=== PATIENT | female | born 1970 | race Caucasian/White ===

== ENCOUNTER 2021-01-15 14:43 | Emergency (ER) | payer SELFPAY ==
[~2021-01-15] VITALS: Ht 162.6 cm; Wt 107.0 kg
--- NOTE | 2021-01-15 17:11 | PHYS DOC ---
Past Medical History Past Surgical History: No Surgical History Smoking Status: Current Every Day Smoker Alcohol Use: Occasionally General Adult EDM: Chief Complaint: MULTIPLE COMPLAINTS HPI: HPI: Patient is a 50 year old female who presents with multiple complaints. Her complaints include oral/dental pain, dried blood on teeth upon waking, sinus pain, facial swelling, left pinky toe numbness, periscapular back numbness, nausea. Patient reports she has had several sinus infections over the past year. She has not been evaluated by ENT. Patient states she believes she has a canker sore behind her front teeth on the upper jaw. She has used topical Orajel, prescribed mouth rinses, and hydrogen peroxide in effort to relieve her oral symptoms. Patient reports she was given a prescription for Flonase and instructed to use Mucinex by her primary care provider, which did not improve her symptoms. She has also taken Sudafed intermittently and for periods of 2 days at a time to treat her nasal congestion without significant symptom relief. She reports that Mucinex does not help improve her symptoms. Patient believes the lower half of her facial swelling comes from her dental symptoms, and that the upper half of her facial swelling is a result of her sinus congestion and pressure. The numbness that she feels in her back and pinky toe began after she "threw her back out" while sweeping at work. She was not evaluated or treated at that time. Patient expressed her concerns to her primary care provider, who advised that she present to the emergency department for a facial CT scan among other work- up. Patient is in the process of smoking cessation and has decreased from greater than 1 pack of cigarettes per day down to 3-5 cigarettes/day and takes Chantix. She has had a chronic cough since age 16 and has had no changes in cough frequency or sputum production. Review of Systems: Review of Systems: Constitutional: Denies fever or chills. Eyes: Denies change in visual acuity, periorbital pain, discharge. HENT: See HPI Respiratory: See HPI Cardiovascular: Denies chest pain or edema. GI: See HPI : Denies dysuria or hematuria. Musculoskeletal: See HPI Integument: Denies rash or other skin lesions. Neurologic: See HPI Heart Score: C/O Chest Pain: No Allergies: Allergies: Allergies Coded Allergies Type Severity Reaction Last Updated Verified acetaminophen Allergy Unknown 01/15/21 Yes oxycodone Allergy Unknown 01/15/21 Yes Physical Exam: PE: Constitutional: Well developed, well nourished, no acute distress, non-toxic appearance. HENT: Normocephalic, atraumatic, bilateral external ears normal, oropharynx moist, no oral exudates, nose without obvious deformity or discharge. Eyes: PERRLA, EOMI, conjunctiva normal, no discharge. Neck: Normal range of motion, no tenderness, supple, no stridor, no JVD. Cardiovascular: Heart rate regular rhythm, no murmur. Lungs & Thorax: Bilateral breath sounds diminished with audible wheezing, consistent with patient's baseline. Abdomen: Bowel sounds normal, soft, no tenderness, no masses, no pulsatile masses. Skin: Warm, dry, no erythema, no rash. Back: No step-offs, no midline tenderness, mild spasm noted on the left side parascapular paraspinal musculature. Extremities: No tenderness, no cyanosis, no clubbing, ROM intact, no edema. Neurologic: Alert and oriented x4, motor function grossly intact, sensory function grossly intact, no focal deficits noted. Current Patient Data: Labs: Laboratory Tests Test 01/15/21 15:52 POC Urine HCG, Qualitative Hcg negative (Negative) Vital Signs: Vital Signs Date Time Temp Pulse Resp B/P (MAP) Pulse Ox O2 Delivery O2 Flow Rate FiO2 01/15/21 15:05 98.3 72 18 176/73 (107) 98 Room Air 98.3 Radiology/Procedures: Radiology/Procedures: PROCEDURE: CT MAXILLOFACIAL WO CONTRAST EXAM: CT maxillofacial bones without contrast INDICATION: Facial pain, facial swelling. Blood in mouth COMPARISON: None TECHNIQUE: Axial CT imaging through the maxillofacial bones without intravenous contrast. Sagittal and coronal reformats were obtained. One or more of the following individualized dose reduction techniques were utilized for this examination: 1. Automated exposure control 2. Adjustment of the mA and/or kV according to patient size 3. Use of iterative reconstruction technique. FINDINGS: There is no acute fracture of the facial bones. There is mild circumferential mucosal thickening in the maxillary sinuses with mild layering complex fluid and frothy secretions in the sinuses. Small amount of fluid or mucosal thickening in the sphenoid sinuses. Scattered mucosal thickening in the ethmoid air cells and frontal sinuses. Mastoid air cells are clear. Globes and orbits are intact. Expanded partially empty sella noted. IMPRESSION: 1. No facial fracture. 2. Paranasal sinus disease, greatest in the maxillary sinuses where there is complex fluid and bubbly secretions. Correlate for acute sinusitis. Electronically signed by: Luba Head MD (01/15/2021 5:15 PM) [id number] Course & Med Decision Making: Course & Med Decision Making Pertinent Labs and Imaging studies reviewed. (See chart for details) Patient's complaints are largely variable and likely unrelated. Patient is pleasant, however difficult to assess due to the subjective nature of her complaints. Per patient, her primary care provider would like a CT of her sinuses. While this is not an imaging study that I would be likely to order myself, scan will be ordered for the patient under advisement of her primary care provider. Lab work will also be drawn. Work-up is reassuring. CT did show evidence of sinusitis. Otherwise, patient will be treated for muscle spasm. Referrals will be provided for ENT and pain management. Patient understands and is agreeable to discharge plan. Dragon Disclaimer: Dragon Disclaimer: This electronic medical record was generated, in whole or in part, using a voice recognition dictation system. Departure Departure Impression: Primary Impression: Congestion of paranasal sinus Additional Impressions: Canker sores oral Muscle spasm Disposition: HOME / SELF CARE / HOMELESS Condition: STABLE Referrals: UNKNOWN PCP NAME (PCP) ROSIE DUNN MD, BRIAN N MD Patient Instructions: Canker Sores, Brief, Muscle Strain, Cscl-rl-Khsj, Sinusitis, Ebvr-cy-Aqmn Scripts Orphenadrine Citrate (ORPHENADRINE CITRATE) 100 Mg Tablet.er 1 TAB PO BID, #20 TAB 1 Refill Prov: CHASTITY HOLDEN 01/15/21 Amoxicillin/Potassium Clav (AUGMENTIN 875-125 TABLET) 1 Each Tablet 1 TAB PO BID for 14 Days, #28 TAB 0 Refills Prov: CHASTITY HOLDEN 01/15/21 CHASTITY HOLDEN Jan 15, 2021 17:10
[2021-01-15 17:13] LABS: BASO % 1 % (0-3); EOS # 0.2 x10^3/uL (0.0-0.7); EOS % 3 % (0-3); HEMATOCRIT 41.2 % (36.0-47.0); HEMOGLOBIN 13.9 g/dL (12.0-15.5); LYMPH # 2.1 x10^3/uL (1.0-4.8); LYMPH % 30 % (24-48); MEAN CORPUSCULAR HEMOGLOBIN 28 pg (25-35); MEAN CORPUSCULAR HGB CONC 34 g/dL (31-37); MEAN CORPUSCULAR VOLUME 82 fL (79-100); MONO # 0.7 x10^3/uL (0.0-1.1); MONO % 10 % (0-9); NEUT # 3.9 x10^3/uL (1.8-7.7); NEUT % 56 % (31-73); PLATELET COUNT 206 x10^3/uL (140-400); RED BLOOD COUNT 5.02 x10^6/uL (3.50-5.40); RED CELL DISTRIBUTION WIDTH 15.4 % (11.5-14.5); WHITE BLOOD COUNT 6.8 x10^3/uL (4.0-11.0)
--- NOTE | 2021-01-15 17:17 | RAD ---
EXAM: CT maxillofacial bones without contrast INDICATION: Facial pain, facial swelling. Blood in mouth COMPARISON: None TECHNIQUE: Axial CT imaging through the maxillofacial bones without intravenous contrast. Sagittal an d coronal reformats were obtained. One or more of the following individualized dose reduction techniques were utilized for this examinat ion: 1. Automated exposure control 2. Adjustment of the mA and/or kV according to patient size 3. Use of iterative reconstruction technique. FINDINGS: There is no acute fracture of the facial bones. There is mild circumferential mucosal thickening in t he maxillary sinuses with mild layering complex fluid and frothy secretions in the sinuses. Small niki unt of fluid or mucosal thickening in the sphenoid sinuses. Scattered mucosal thickening in the ethmo id air cells and frontal sinuses. Mastoid air cells are clear. Globes and orbits are intact. Expanded partially empty sella noted. IMPRESSION: 1. No facial fracture. 2. Paranasal sinus disease, greatest in the maxillary sinuses where there is complex fluid and bubbly secretions. Correlate for acute sinusitis. Electronically signed by: Luba Head MD (01/15/2021 5:15 PM) [id number]
[2021-01-15 17:23] LABS: CALCIUM 8.3 mg/dL (8.5-10.1); CREATININE 0.7 mg/dL (0.6-1.0); GFR 89.3; POTASSIUM 4.1 mmol/L (3.5-5.1)
[2021-01-15 17:29] LABS: ALBUMIN 3.1 g/dL (3.4-5.0); ALBUMIN/GLOBULIN RATIO 0.8 (1.0-1.7); TOTAL BILIRUBIN 0.3 mg/dL (0.2-1.0); TOTAL PROTEIN 7.2 g/dL (6.4-8.2)
[2021-01-15] MEDS ORDERED: ORPH100T PO (18:21)
[2021-01-15] MEDS ORDERED: AMOX1TAB61 PO (18:21)
[2021-01-15 18:55] VITALS: BP 148/68
== END 2021-01-15 18:56 | disposition home or self-care (01) ==
LOC: ER 14:43
DX: K12.0 Recurrent oral aphthae (principal); R09.81 Nasal congestion; M62.838 Other muscle spasm; Z88.5 Allergy status to narcotic agent; Z88.6 Allergy status to analgesic agent
CPT/HCPCS: 36415; 70486; 80053; 81025; 83690; 85025; 99284-25

== ENCOUNTER → 2021-03-23 | Outpatient (CLI) | payer OTHER ==
[~2021-03-23] MED LIST: AMOX1TAB61 PO; ORPH100T PO
--- NOTE | 2021-03-24 11:20 | CARD ---
MR#: [id number] Date of Study: 03/23/2021 Ordering Physician: ARABELLA IVAN, Referring Physician: ARABELLA IVAN, Tech: Katya Adame, [facility] APPROVED REPORT EXAM: Two-dimensional and M-mode echocardiogram with Doppler and color Doppler. Other Information Quality : AverageHR: 58bpm INDICATION Murmur RISK FACTORS Hypertension Smoking 2D DIMENSIONS Left Atrium(2D)3.9 (1.6-4.0cm)IVSd1.1 (0.7-1.1cm) Aortic Root(2D)4.1 (2.0-3.7cm)LVDd5.1 (3.9-5.9cm) LVOT Diameter2.0 (1.8-2.4cm)PWd1.0 (0.7-1.1cm) LVDs2.4 (2.5-4.0cm)FS (%) 52.6 % SV104.3 mlLVEF(%)83.4 (>50%) Aortic Valve AoV Peak Yohan.133.7cm/sAoV VTI29.9cm AO Peak GR.7.1mmHgLVOT Peak Yohan.121.8cm/s LVOT VTI 27.79cmAO Mean GR.4mmHg CURTIS (VMAX)2.89bb9JCE (VTI)3.05cm2 Mitral Valve MV E Dgiegknj411.2cm/sMV DECEL [id number] MV A Vvydxlta43.2cm/sMV E Mean Gr.2mmHg MV WGS34lpH/A Ratio1.3 MVA (PHT)3.55cm2 TDI E/Lateral E'8.9E/Medial E'14.0 Pulmonary Valve PV Peak Efpzocth544.4cm/sPV Peak Grad.4mmHg Tricuspid Valve TR P. Gjoitits196tg/sRAP FFMQLTWL6ncXx TR Peak Gr.36yoPcYDLF45ppKh Pulmonary Vein S1 Tbuwzqtf98.8cm/sD2 Ufkjpjrd20.7cm/s PVa pvhytsyr757dxhb LEFT VENTRICLE The left ventricle is normal size. There is normal left ventricular wall thickness. The left ventricu lar systolic function is normal and the ejection fraction is within normal range. The Ejection Fracti on is 50-55%. There is normal LV segmental wall motion. The left ventricular diastolic function and f illing is normal for age. RIGHT VENTRICLE The right ventricle is normal size. There is normal right ventricular wall thickness. The right ventr icular systolic function is normal. ATRIA The left atrium size is normal. The right atrium size is normal. The interatrial septum is intact wit h no evidence for an atrial septal defect or patent foramen ovale as noted on 2-D or Doppler imaging. AORTIC VALVE The aortic valve is normal in structure and function. Doppler and Color Flow revealed no significant aortic regurgitation. There is no significant aortic valvular stenosis. Calculated aortic valve area is 2.85 cm2 with maximum pressure gradient of 9 mmHg and mean pressure gradient of 5 mmHg. MITRAL VALVE The mitral valve is normal in structure and function. There is no evidence of mitral valve prolapse. There is no mitral valve stenosis. Doppler and Color-flow revealed trace mitral regurgitation. TRICUSPID VALVE The tricuspid valve is normal in structure and function. Doppler and Color Flow revealed no tricuspid valve regurgitation noted with an estimated PAP of 39 mmHg. There is no tricuspid valve stenosis. PULMONIC VALVE The pulmonic valve is not well visualized. Doppler and Color Flow revealed trace pulmonic valvular re gurgitation. There is no pulmonic valvular stenosis. GREAT VESSELS The aortic root is normal in size. The IVC is normal in size and collapses >50% with inspiration. PERICARDIAL EFFUSION There is no evidence of significant pericardial effusion. Critical Notification Critical Value: No <Conclusion> The left ventricular systolic function is normal and the ejection fraction is within normal range. Th e Ejection Fraction is 50-55%. There is normal LV segmental wall motion. Signed by : Oscar Corley, Electronically Approved : 03/24/2021 11:20:05
== END ==
LOC: ECHO 11:28
PROVIDERS: ATTEND Nurse Practitioner Primary Care
DX: R01.1 Cardiac murmur, unspecified (principal)
CPT/HCPCS: 93306; C8929